=== PATIENT | male | born 1990 | race Caucasian/White ===

== ENCOUNTER 2017-01-02 13:29 | Observation (INO) | payer SELFPAY ==
[2017-01-02] MEDS ORDERED: NS 0.9% 1000 ML* 3,000 ML IV ONE (14:37)
[2017-01-02 15:06] LABS: Hematocrit 49 % (42-52); Hemoglobin 16.3 g/dl (14.0-18.0); Mean Corpuscular HGB Conc 33 g/dl (31-36); Mean Corpuscular Hemoglobin 30 pg (27-31); Mean Corpuscular Volume 89 fL (80-94); Mean Platelet Volume 8 um3 (7.4-10.4); Red Blood Count 5.49 10^6/ul (4.0-5.4); Red Cell Distribution Width 13 % (10.5-15); White Blood Count 12.8 10^3/ul (3.5-10.8)
[2017-01-02 15:22] LABS: ALT 13 U/L (7-52); AST 26 U/L (13-39); Albumin 4.8 g/dL (3.2-5.2); Alkaline Phosphatase 73 U/L (34-104); Anion Gap 7 mmol/L (2-11); BUN/Creatinine Ratio 11.3 (8-20); Blood Urea Nitrogen 11 mg/dL (6-24); CO2 Carbon Dioxide 26 mmol/L (22-32); Calcium 10.2 mg/dL (8.6-10.3); Chloride 100 mmol/L (101-111); Creatine Kinase 473 U/L (10-223); EGFR African American 122.3 (>60); EGFR Non-African American 95.1 (>60); Globulin 3.1 g/dL (2-4); Glucose 134 mg/dL (70-100); Potassium 3.5 mmol/L (3.5-5.0); Sodium 133 mmol/L (133-145); Total Protein 7.9 g/dL (6.4-8.9)
[2017-01-02 16:01] LABS: TSH (Thyroid Stimulating Horm) 0.43 mcIU/mL (0.34-5.60)
[2017-01-02 16:03] LABS: Acetaminophen < 15 mcg/mL; Alcohol < 10 mg/dL (<10); Salicylate < 2.50 mg/dL (<30)
[2017-01-02] MEDS ORDERED: Al Hydrox/Mg Hydrox/Simet LIQ* 30 ML UDC PO PRN (16:18)
[2017-01-02] MEDS ORDERED: Ondansetron INJ* 2 MG/ML VIAL IV PRN (16:18)
[2017-01-02] MEDS: NS 0.9% 1000 ML* 1,000 ML IV SCH (19:38)
[2017-01-03] MEDS: NS 0.9% 1000 ML* 1,000 ML IV SCH ×2 (05:11→15:29)
[2017-01-03 05:15] LABS: Hematocrit 43 % (42-52); Hemoglobin 14.2 g/dl (14.0-18.0); Mean Corpuscular HGB Conc 33 g/dl (31-36); Mean Corpuscular Hemoglobin 30 pg (27-31); Mean Corpuscular Volume 91 fL (80-94); Mean Platelet Volume 8 um3 (7.4-10.4); Red Blood Count 4.68 10^6/ul (4.0-5.4); Red Cell Distribution Width 13 % (10.5-15); White Blood Count 8.9 10^3/ul (3.5-10.8)
[2017-01-03 05:30] LABS: Albumin 3.7 g/dL (3.2-5.2); BUN/Creatinine Ratio 9.7 (8-20); Calcium 8.7 mg/dL (8.6-10.3); EGFR African American 128.4 (>60); EGFR Non-African American 99.8 (>60); Globulin 2.4 g/dL (2-4); Potassium 4.1 mmol/L (3.5-5.0); Total Bilirubin 1.6 mg/dL (0.2-1.0); Total Protein 6.1 g/dL (6.4-8.9)
[2017-01-03 05:53] LABS: Urine Bilirubin Negative (Negative); Urine Glucose Negative (Negative); Urine Nitrite Negative (Negative)
[2017-01-03 06:13] LABS: Benzodiazepine Urine Screen None Detected (None Detect)
--- NOTE | 2017-01-03 09:58 | PN ---
Subjective Date of Service: 01/03/17 Interval History: . no complaints at this time still worried he might hurt himself if left alone. reviewed labs; all wnl at this point EKG without QTc prolongation. CLEARED FROM A MEDICAL PERSPECTIVE -- NOW APPROPRIATE FOR PSYCHIATRIC EVALUATION. . Family History: Unchanged from Admission Social History: Unchanged from Admission Past Medical History: Unchanged from Admission Objective Active Medications: . Al Hydrox/Mg Hydrox/Simethicone (Maalox Plus*) 30 ml PO Q6H PRN PRN Reason: INDIGESTION Sodium Chloride (Ns 0.9% 1000 Ml*) 1,000 mls @ 100 mls/hr IV PER RATE MINNA Last Admin: 01/03/17 05:11 Dose: 100 mls/hr Ondansetron HCl (Zofran Inj*) 4 mg IV Q4H PRN PRN Reason: NAUSEA/VOMITING . Vital Signs 01/02/17 01/02/17 01/02/17 16:00 16:30 17:00 Temperature Pulse Rate 100 100 92 Respiratory 26 28 21 Rate Blood Pressure 147/83 134/72 136/72 (mmHg) O2 Sat by Pulse 96 96 96 Oximetry 01/02/17 01/02/17 01/02/17 17:30 17:45 18:14 Temperature 97.6 F 99.3 F Pulse Rate 92 96 86 Respiratory 22 18 18 Rate Blood Pressure 128/84 136/72 133/84 (mmHg) O2 Sat by Pulse 97 97 99 Oximetry 01/02/17 01/03/17 23:36 05:06 Temperature 98.2 F 97.7 F Pulse Rate 61 96 Respiratory 20 20 Rate Blood Pressure 137/73 141/59 (mmHg) O2 Sat by Pulse 99 100 Oximetry Oxygen Devices in Use Now: None Appearance: no distress; depressed Ears/Nose/Mouth/Throat: NL Teeth, Lips, Gums, Clear Oropharnyx Neck: NL Appearance and Movements; NL JVP, - - superficial neck lacerations Respiratory: Symmetrical Chest Expansion and Respiratory Effort Cardiovascular: NL Sounds; No Murmurs; No JVD Abdominal: NL Sounds; No Tenderness; No Distention Lymphatic: No Cervical Adenopathy Extremities: - - L wrist lacerations - superficial Skin: No Rash or Ulcers Neurological: Alert and Oriented x 3 Lines/Tubes/Other Access: Clean, Dry and Intact Peripheral IV Nutrition: Taking PO's Result Diagrams: 01/03/17 05:00 01/03/17 05:00 Assess/Plan/Problems-Billing . Assessment: 26 yo man with superficial neck and wrist lacerations as well as pill ingestion as part of suicide attempt. MAJOR DEPRESSIVE DISORDER. - Patient Problems (1) Major depression Current Visit: Yes Status: Acute Code(s): F32.9 - MAJOR DEPRESSIVE DISORDER , SINGLE EPISODE, UNSPECIFIED Comment: psychiatry consult today. (2) Suicidal overdose Current Visit: Yes Status: Acute Priority: High Code(s): T50.902A - POISONING BY UNSP DRUG/MEDS/BIOL SUBST, SELF-HARM, INIT Comment: 1:1 monitoring QTc OK -- 24+ hours after ingestion; cleared medically for psychiatric care as deemed appropriate.
--- NOTE | 2017-01-03 15:02 | HP ---
HISTORY AND PHYSICAL: DATE OF ADMISSION: 01/02/17 TIME OF MY EVALUATION: 5 p.m. PRIMARY CARE PROVIDER: None. CHIEF COMPLAINT: Suicidal attempt by pill ingestion and wrist laceration and neck laceration. HISTORY OF PRESENT ILLNESS: Mr. Byrd is a 26-year-old gentleman who has no significant medical history, but has been suffering from worsening depression over the past month and has had depression for about a year. The night prior to presentation, the patient took a bottle of pills. He is very vague about the quantity or the identity. He stated they were his mother's pills and she did have bupropion and so he thinks that might have been the substance ( Wellbutrin). The patient also superficially cut his left wrist and throat. He is hemodynamically stable in the emergency room. Because of the recommendation by Poison Control, the hospital service was contacted for observation to observe his QTc, hemodynamic stability, and electrolytes. The patient denies any recent physical ailments. There were no fevers, chills, nausea, vomiting, diarrhea, ill contacts, or any other medical problems that he can remember. He is accompanied by his fiancee. The patient did not go into great detail about his depression with me. He is being followed by the mental health / psychiatry service separately. PAST MEDICAL HISTORY: Depression as above. OUTPATIENT MEDICATIONS: No prescription medications. ALLERGIES: PENICILLIN. FAMILY HISTORY: The family history was reviewed. No history of suicidality by first-degree relatives as per the patient. 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 He is single, but engaged. He does use illicit drugs. He was evasive about this, but his toxicology screen was positive for both cocaine and cannabinoids and he confirmed this was accurate. REVIEW OF SYSTEMS: A review of 14 systems was accomplished at the bedside. This was largely negative except for the pertinent positives mentioned above in the HPI and past medical history. Specifically no identifiable medical problems. PHYSICAL EXAMINATION GENERAL APPEARANCE: A young-appearing man appears stated age, in no apparent distress at this time. Awake, alert, and oriented x3, and answering questions appropriately. He is in a [facility] gown. VITAL SIGNS: On admission, temperature 97.6 degrees Fahrenheit, previously it was as high as 99.3, this was untreated; pulse rate initially 130s, sinus tachycardia, drifted down into the 90s with rehydration; respirations 20 and unlabored; oxygen saturation 99% on room air; and blood pressure 139/87. HEENT: Oropharynx is clear. Mucous membranes are moist. NECK: Significant for superficial lacerations that are clean at this time. CHEST: Clear breath sounds anteriorly and posteriorly. No increased work of breathing. No accessory muscle use. HEART: Regular rate and rhythm. No murmurs, rubs, or gallops appreciated. ABDOMEN: Soft and nontender. Skin is dry and intact. EXTREMITIES: Superficial lacerations on his left wrist, also clean and dry at this time; these are new. LYMPH: No adenopathy. NEUROLOGIC: No focal sensorimotor, proprioception, or reflex component deficiencies. PSYCH: Flat affect, obviously depressed, cheerful at times. ADMISSION DATA: His admission chemistry was generally unremarkable except for elevated glucose of 134 - unknown dietary status surrounding that value. Total bilirubin 1.7 and total CK was 473. Chloride was marginally lower at 100. His CBC was remarkable for a mildly elevated white blood cell count of 12.8, hemoglobin 16.3, and platelets 202. Urinalysis unremarkable. Toxicology positive for cocaine and marijuana. EKG initially was sinus bradycardia, no evidence of ST or T-wave abnormalities, and QTc was not prolonged. IMPRESSION: Mr. Byrd is a 26-year-old gentleman with an unknown ingestion as part of a suicide attempt with concurrent self-inflicted lacerations. The patient is certainly appropriate for psychiatric referral and strong consideration for inpatient treatment, but in the interim needs medical clearance with observation and EKG/QTc, hemodynamic and electrolyte monitoring. The patient will be placed on the medical service on observation status under telemetry monitoring and will have labs rechecked in the morning and I will run fluids overnight. The patient will be kept on one- to-one suicide monitoring. His fiancee will be allowed to stay as a matter of support to the patient and he seems to appreciate that. Further clinical decision will be made based on his progress overnight. DVT prophylaxis will be accomplished by ambulation. The patient is low risk for VTE events / complications. Surrogate decision maker is the patient's mother, Yaquelin Edwards, who could be reached at . The patient is a full code. TIME SPENT: Total time time to admit Mr. Byrd was 65 minutes. Greater than half that time was spent going over the history and physical and explaining the hospital plan of care and that I would contact the psychiatry attending tomorrow pending medical clearance. CONDITION: At this point, stable. [id number]/CPS #: [id number] PAM
[2017-01-03 17:25] VITALS: BP 132/87
[2017-01-03] MEDS ORDERED: Acetaminophen TAB* 325 MG PO PRN (18:05)
[2017-01-04] MEDS ORDERED: Vitamin THERAPEUTIC TAB PO SCH (09:00)
--- NOTE | 2017-01-04 16:09 | PN ---
Hospitalist Progress Note . HOSPITALIST DISCHARGE NOTE: Psych service is admitting Mr. Byrd. I signed a second attending attestation in support of this decision. See dc summary.
--- NOTE | 2017-01-04 23:55 | ED ---
Manuel Colbert Erika, scribed for Bakari Correia MD on 01/02/17 at 1545 . Psychiatric Complaint - HPI Summary HPI Summary: Patient is a 26-year-old male presenting to the ED with a CC of overdose. Patient reports that he took 15 pills of his mother's Buspar and 5 pills of his mother's Wellbutrin. He also has used cocaine, marijuana, and alcohol. He also reports that he self-harmed a few days ago - he notes lacerations and grace to his left forearm, as well as lacerations to his neck. Patient has prior suicide attempts. Patient has not been diagnosed with depression. - History Of Current Complaint Chief Complaint: EDMentalHealth Time Seen by Provider: 01/02/17 14:42 Hx Obtained From: Patient, Family/School Bus Driver/Teacher Assistant - Mother Onset/Duration: Sudden Onset, Lasting Hours, Still Present Timing: Constant Severity Initially: Moderate Severity Currently: Moderate Character: Depressed Alleviating Factor(s): Nothing Related History: Positive For: Prior Psychiatric Issues Has Suicidal: Reports: Thoughts, With A Plan, Demonstrates Gesture, Has Prior Attempt(s) - Allergies/Home Medications Allergies/Adverse Reactions: Allergies Allergy/AdvReac Type Severity Reaction Status Date / Time Penicillins Allergy Hives Verified 01/02/17 13:46 PMH/Surg Hx/FS Hx/Imm Hx Endocrine/Hematology History: Denies: Hx Diabetes Psychiatric History: Reports: Hx Depression - undiagnosed, Hx Suicide Attempt Infectious Disease History: Yes Infectious Disease History: Denies: Traveled Outside the [place] in Last 30 Days - Family History Known Family History: Positive: Other - anxiety, depression - Social History Lives: With Family Hx Substance Use: Yes Substance Use Type: Reports: Cocaine, Marijuana Review of Systems Skin: Other - grace and lacerations - see HPI Positive: Depressed All Other Systems Reviewed And Are Negative: Yes Physical Exam Triage Information Reviewed: Yes Vital Signs On Initial Exam: Initial Vitals Temp Pulse Resp BP Pulse Ox 99.3 F 131 20 139/87 99 01/02/17 13:34 01/02/17 13:34 01/02/17 13:34 01/02/17 13:34 01/02/17 13:34 Vital Signs Reviewed: Yes Appearance: Positive: Well-Appearing, No Pain Distress Skin: Positive: Warm, Skin Color Reflects Adequate Perfusion, Dry, Other - Healing cigarette-type grace to the left forearm. Some superficial lacerations on the left forearm. Superficial laceration to the left side of the throat Head/Face: Positive: Normal Head/Face Inspection Eyes: Positive: Other: - Pupils are 4-5 mm and reactive ENT: Positive: Normal ENT inspection Neck: Positive: Supple, Nontender Respiratory/Lung Sounds: Positive: Clear to Auscultation, Breath Sounds Present Cardiovascular: Positive: Tachycardia - at 131 bpm on triage Abdomen Description: Positive: Nontender, Soft Bowel Sounds: Positive: Present Musculoskeletal: Positive: Normal Neurological: Positive: Normal Psychiatric: Positive: Affect/Mood Appropriate Diagnostics - Vital Signs Vital Signs Temp Pulse Resp BP Pulse Ox 01/02/17 13:34 99.3 F 131 20 139/87 99 - Laboratory Lab Results: Lab Results 01/02/17 01/02/17 01/02/17 Range/Units 14:50 14:50 14:50 WBC 12.8 H (3.5-10.8) 10^3/ul RBC 5.49 H (4.0-5.4) 10^6/ul Hgb 16.3 (14.0-18.0) g/dl Hct 49 (42-52) % MCV 89 (80-94) fL MCH 30 (27-31) pg MCHC 33 (31-36) g/dl RDW 13 (10.5-15) % Plt Count 202 (150-450) 10^3/ul MPV 8 (7.4-10.4) um3 Neut % (Auto) 77.0 (38-83) % Lymph % (Auto) 13.5 L (25-47) % [place]oun % (Auto) 9.1 H (1-9) % Eos % (Auto) 0 (0-6) % Baso % (Auto) 0.4 (0-2) % Absolute Neuts (auto) 9.8 H (1.5-7.7) 10^3/ul Absolute Lymphs (auto) 1.7 (1.0-4.8) 10^3/ul Absolute Monos (auto) 1.2 H (0-0.8) 10^3/ul Absolute Eos (auto) 0 (0-0.6) 10^3/ul Absolute Basos (auto) 0.1 (0-0.2) 10^3/ul Absolute Nucleated RBC 0.01 10^3/ul Nucleated RBC % 0 Sodium 133 (133-145) mmol/L Potassium 3.5 (3.5-5.0) mmol/L Chloride 100 L (101-111) mmol/L Carbon Dioxide 26 (22-32) mmol/L Anion Gap 7 (2-11) mmol/L BUN 11 (6-24) mg/dL Creatinine 0.97 (0.67-1.17) mg/dL Est GFR ( Amer) 122.3 (>60) Est GFR (Non-Af Amer) 95.1 (>60) BUN/Creatinine Ratio 11.3 (8-20) Glucose 134 H (70-100) mg/dL Calcium 10.2 (8.6-10.3) mg/dL Total Bilirubin 1.70 H (0.2-1.0) mg/dL AST 26 (13-39) U/L ALT 13 (7-52) U/L Alkaline Phosphatase 73 (34-104) U/L Total Creatine Kinase 473 H (10-223) U/L Total Protein 7.9 (6.4-8.9) g/dL Albumin 4.8 (3.2-5.2) g/dL Globulin 3.1 (2-4) g/dL Albumin/Globulin Ratio 1.5 (1-3) TSH 0.43 (0.34-5.60) mcIU/mL Salicylates < 2.50 (<30) mg/dL Acetaminophen < 15 mcg/mL Serum Alcohol < 10 (<10) mg/dL HIV 1&2 Antibody Nonreactive (Nonreactive) Result Diagrams: 01/03/17 05:00 01/03/17 05:00 Lab Statement: Any lab studies that have been ordered have been reviewed, and results considered in the medical decision making process. - EKG 13:50 Cardiac Rate: Tachycardia - at 116 bpm EKG Rhythm: Sinus Tachycardia ST Segment: Non-Specific EKG Interpretation: No prolonged QT Course/Dx - Differential Dx/Clinical Impression Provider Diagnosis: Overdose - Physician Notifications Discussed Care Of Patient With: Dr. Henderson (hospitalist) at 15:56 - agrees to admit as per poison control Discharge - Discharge Plan Condition: Stable Disposition: ADMITTED TO [facility] documentation as recorded by the Manuel osman Erika accurately reflects the service I personally performed and the decisions made by me, Bakari Correia MD.
--- NOTE | 2017-01-05 06:53 | DS ---
DISCHARGE SUMMARY: DATE OF ADMISSION: 01/02/17 DATE OF DISCHARGE: 01/03/17 STATUS DURING HOSPITALIZATION: Observation. PRINCIPAL DISCHARGE DIAGNOSIS: Suicidal attempt by toxic ingestion (presumably Wellbutrin) as well as self-inflicted lacerations. DISCHARGE MEDICATIONS: None. HISTORY OF PRESENT ILLNESS AND HOSPITAL COURSE: Please see my H and P on . In brief, Mr. Byrd is an unfortunate 26-year-old gentleman, who has been having worsening depression, now acute major depression with a suicide attempt by pill ingestion as well as superficial lacerations to his left wrist and neck and referral for medical observation by Poison Control. I made the patient observation status on the evening of 01/02/17 to observe him on telemetry monitoring and to recheck a QTc the next morning, both of which were unremarkable. The patient was deemed stable for transfer to the psychiatry service and they did follow up and evaluate him and deem him suitable for inpatient behavioral health services. Now, the patient is being discharged to their care. Please see the separate psychiatric consultation from 01/03/17. There were no medical recommendations on transfer. Of course, the medical service will remain available to assist in this patient's care if the need arises. TIME SPENT: Total time taken to evaluate and transfer Mr. Byrd on 01/03/17 was 45 minutes, please see the separate daily progress note, which was done earlier in the day that speaks to the medical stability of the patient and readiness for transfer. MEDICAL CONDITION AT TRANSFER: Stable. [id number]/[facility] #: [id number]
== END 2017-01-03 18:19 ==
LOC: ED 13:29 → MEDTELE 15:54
PROVIDERS: ADMIT Hospitalist; ATTEND Internal Medicine
DX: T43.292A Poisoning by other antidepressants, intentional self-harm, initial encounter (principal); Y92.9 Unspecified place or not applicable; S11.81XA Laceration without foreign body of other specified part of neck, initial encounter; S61.512A Laceration without foreign body of left wrist, initial encounter; X78.9XXA Intentional self-harm by unspecified sharp object, initial encounter; F32.9 Major depressive disorder, single episode, unspecified; I51.7 Cardiomegaly; R00.0 Tachycardia, unspecified; F17.210 Nicotine dependence, cigarettes, uncomplicated
CPT/HCPCS: 36415; 80053; 80307; 80320; 80329; 81003; 82550; 84443; 85025; 86703; 93005; 96360; 96361; 99285; 99406; G0378; G0480

== ENCOUNTER 2017-01-03 18:05 | Inpatient (IN) | payer SELFPAY ==
[2017-01-04] MEDS ORDERED: Mouth Piece, Nicotine* 1 EACH CARTRIDGE INH SCH (09:52)
[2017-01-04] MEDS ORDERED: Al Hydrox/Mg Hydrox/Simet LIQ* 30 ML UDC PO PRN (09:52)
[2017-01-04] MEDS ORDERED: Nicotine GUM* 2 MG PO PRN (09:52)
[2017-01-04] MEDS ORDERED: Nicotine Inhaler* 10 MG AMP INH PRN (09:52)
[2017-01-04] MEDS ORDERED: Acetaminophen TAB* 325 MG PO PRN (09:52)
--- NOTE | 2017-01-04 19:43 | PN ---
Progress Note - Progress Note Note: Patient told there are two patients on the unit (did not disclose their names) who have tested positive for Influenza A and I am recommending taking Tamiflu as a prophylactic measure. I made it clear this was optional. He agreed to the treatment after hearing of the indications, risks, benefits and alternatives.
[2017-01-04] MEDS: Nicotine Patch Removal NOTE PATCH OFF SCH (20:11)
[2017-01-04] MEDS ORDERED: Mouth Piece, Nicotine* 1 EACH CARTRIDGE ONE (20:12)
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
[2017-01-05] MEDS: Oseltamivir CAP* 75 MG PO SCH (09:13)
[2017-01-05] MEDS: Vitamin THERAPEUTIC TAB PO SCH (09:13)
[2017-01-05] MEDS: Nicotine PATCH 14 MG/24 HR* PATCH TRANSDERM SCH ×2 (09:14)
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
[2017-01-05] MEDS: Citalopram TAB* 20 MG PO SCH (17:37)
[2017-01-05] MEDS: Nicotine Patch Removal NOTE PATCH OFF SCH (23:13)
[2017-01-06 07:49] VITALS: BP 135/71
[2017-01-06] MEDS: Nicotine PATCH 14 MG/24 HR* PATCH TRANSDERM SCH (08:18)
[2017-01-06] MEDS: Citalopram TAB* 20 MG PO SCH (08:18)
[2017-01-06] MEDS: Vitamin THERAPEUTIC TAB PO SCH (08:18)
[2017-01-06] MEDS: Oseltamivir CAP* 75 MG PO SCH (08:18)
--- NOTE | 2017-01-06 11:09 | PN ---
MHU: Group Therapy Note - Service Type Service Type: 72245 Group Psychotherapy - Cognitive Behavioral Group Therapy ( CBT):Patient was attentive and participatory in CBT programming this morning, and remained in good behavioral control. Patient expressed positive insights regarding relevant treatment interventions and goals.
--- NOTE | 2017-01-06 21:35 | CONS ---
PSYCHOLOGICAL CONSULT REPORT: DATE OF CONSULTATION: 01/05/17 REASON FOR REFERRAL: Asael was referred for personality testings secondary to concerns regarding possible bipolar condition. The patient describes periodic disruption in sleep cycle. TEST ADMINISTERED: Asael completed the [place] Multiphasic Personality Inventory-2 (MMPI-2). He was given feedback in individual conversation and has been seen in the context of cognitive behavioral psychotherapy by this mortgage loan underwriter as well. BEHAVIORAL OBSERVATIONS: Asael is a 26-year-old male who presented in the emergency department after taking an overdose of his mother's psychotropic medications. After short stabilization, he was down to psychiatric merrill for further evaluation secondary to safety concerns. Asael has been cooperative with all efforts, treat, and assess, and has endorsed a family history of bipolar disorders, expressing concerns that he maybe beginning to show signs and symptoms thereof as well. However, his recent difficulties appeared to have exacerbated by increasing use of recreational drugs including recent use of cocaine. He describes having using marijuana on a daily basis since early adolescence, and then stopping regular marijuana use and instead using cocaine. He describes reacting to difficulties with insomnia with simply experimenting with cocaine as a means to "feel better." This of course exacerbated his insomniac difficulties and appears to have led to increased emotional agitation precipitating his overdose attempt. 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 He describes at times closing past midnight and then going home to have his meal, which at times would lead to periods of either poor sleep hygiene or louis insomnia. Asael, however, does not endorse any difficulties consistent with delusional thoughts or beliefs or any sort of thought disorder issues. He does not present with any characteristic speech patterns or bipolar manic episode and displays good insight and judgment currently. He has been quiet patient while on a very busy inpatient unit and trying to given himself and staff time to properly formulate a diagnosis to rule out possibility of bipolar condition and possible utilization of medications. TEST RESULTS: Asael provides highly distressed profile on validity scale indicators, having obtained FB scale score of something greater than 120. This is quite literally off charts in terms of an extreme endorsement pattern of cynical and pessimistic thoughts and feelings about life in this prospects. Concomitantly, he has extremely low scores occurring on emotional coping and self-esteem indices obtaining scores lower than 35 on both. This is a classic floor and ceiling effect characteristic of "cry for help" response. However, Asael does not endorse depression in an overly dramatic fashion, having only obtained a minor elevation on the depression scale (T = 67). He has elevated all 3 psychoticism scales between the T score of 85 and 95 including the hypomania scale (T = 75). He also scores in a similar fashion in the social conversion scale. Discussion, which Asael addressed impulsivity as a primary concern as he does not present as though he is in the manic condition nor does he endorse characteristic symptoms. In the context of his over endorsement of stress, these elevated scales appeared to represent his interpretation in a personal duress including his what is likely to be rather intense periods of insomnia. Asael's difficulties off course also occur in the context of recreational drug use including cocaine, which certainly complicates his diagnostic picture. But given his presentation while on the unit, this would seems to contradict such concerns. DIAGNOSTIC IMPRESSIONS: Support polysubstance use disorder (marijuana, alcohol , and less frequently cocaine). Treatment should continue to rule out possible bipolar disorder as Asael endorses positive family history thereof. Asael impresses as good candidate to benefit from continued outpatient psychotherapies as he has not had mental health contact before and is open and appreciative of services. [id number]/[facility] #: [id number] PAM
--- NOTE | 2017-01-07 01:21 | DS ---
DISCHARGE SUMMARY: DATE OF ADMISSION: 01/03/17 DATE OF DISCHARGE: 01/06/17 DISCHARGE DIAGNOSES: [place] I: Unspecified depressive disorder; rule out major depressive disorder versus bipolar disorder type 2; cocaine use disorder; cannabis use disorder. [place] II: Cluster B personality traits. [place] III: Noncontributory. [place] IV: Severe primary support stressors. [place] V: At the time of admission was 40 and at the time of discharge is 60. CONDITION AT THE TIME OF DISCHARGE: Stable. The patient is calm, cooperative. He has experienced a complete resolution of his suicidal ideations. He is future oriented indicating that he wants to return to work and living in his apartment with his fiancee and he is eager to get back into school to finish his undergraduate degree. He is denying the urge to harm himself or to use substances of abuse and he is very much eager to embark on outpatient substance abuse and mental health treatment in the community. We just had a family meeting attended by himself and his fiancee who has been with him for the past 3 -1/2 years. Both the patient and his loved one are in agreement with the discharge plan. The patient is on a voluntary status and he is requesting discharge. I do not see any legal justification for keeping him any further, feeling that he can be successfully treated in a less restricted setting. MENTAL STATUS EXAMINATION: The patient is a young nice looking white male, who is wearing a flannel shirt. He is clean and well groomed with curly brown hair. Currently, he is holding hands with his fiancee and they are clearly interacting appropriately and lovingly. Speech has a normal rate, tone and volume. Mood is euthymic with a full affect. Thought process is linear and goal directed. Thought content is significant for his desire to leave the hospital in order to return to work. The patient is denying suicidal or homicidal ideations. He is denying auditory or visual hallucinations. Insight and judgment is good given his willingness to follow up with outpatient treatment of both his mental illness and substance abuse issues. Cognitively, he is awake and alert with what appeared to be an average intellect. DISCHARGE INSTRUCTIONS: To the patient are as follows: A. Medications: The patient is taking citalopram 20 mg p.o. daily. B. Diet: Regular. C. Activity: As tolerated. The patient is strongly encouraged to abstain from tobacco products; however, he is declining the offer of continued nicotine replacement therapies indicating his preference to continue smoking for the time being. D. Followup care: The patient will follow up with the [facility] where his intake will be within one week of discharge. In addition to this, he is agreeable with followup at the [facility] , which is also on the grounds of [facility]. HOSPITAL COURSE: As follows: PART A: Reason for admission: The patient is a 26-year-old engaged, domiciled , employed white male with no formal psychiatric history who was transferred to our unit from the ICU following medical clearance after an overdose intentionally of 15 to 20 unknown anxiety and antidepressant pills, which had belonged to his mother. The patient was medically cleared and taken to our unit for admission where he related that the prior he had argued with his fiaidae. Apparently, he became upset, agitated and impulsively swallowed between 15 and 20 pills of BuSpar and an unspecified antidepressant, which were leftover medications belonging to his mother. His girlfriend saw him swallowing the pills and helped him throw up afterwards at which time she called 911. He ordered her not to and he promised to go to the hospital on Thursday morning. The fiancee apparently had to go to work in the morning and his mother volunteered to drive him into the hospital. He was briefly medically admitted, but then transferred to our care. At this time, he was reporting longstanding issues with depressed mood beginning at the age of 14. He states that he is having feelings of sadness, numbness, thoughts of suicide. He had made a number of suicidal gestures over the past 6 months including trying to hang himself, burning himself and exposing himself to the elements as well as cutting. During these periods he has little appetite, sleeps very poorly. He feels tired during the day. He was also endorsing feelings of guilt , hopelessness, helplessness and worthlessness and describing that for the past 3 to 4 weeks he has been easily frustrated and irritable. He has gone about 50 hours without sleep at various times and states that he did not feel tired. He said he often feels paranoid and argues and connects things that are not related. The patient admits to a significant history of substance abuse, which started when he was 14. He averages smoking between 1 to 2 grams of marijuana daily until 1 to 2 months ago when he stopped using marijuana and started using cocaine almost daily. He also drinks between 6 and 12 beers per day. The patient denies any legal or medical consequences of substance abuse and states that he has abused LSD and mushrooms in the past. Stressors include periodically strained relations with his girlfriend as well as financial strains because he has been using his pay check to buy drugs. PART B: Psychiatric treatment rendered: The patient was admitted to the Adult Behavioral Health Unit, where he was placed on q.30-minute checks for his own safety. He did endorse multiple symptoms of depression on the MMPI and also tended to score highly on hypomanic symptoms, but this was confounded by his intense use of cocaine recently and therefore, we felt that the safest and likely most accurate diagnosis would have been one of major depressive disorder. For this reason, he was started on a low dose of citalopram initially 10 mg and then 20 mg p.o. daily, which he appears to be tolerating well. For the most part, he seems to have mostly benefitted from the milieu setting where he has had satisfactory interactions with both staff and peers, particularly in the group therapy setting. He indicates this is the most he has ever talked about himself and he feels relief from letting out his issues and allowing other people to console and advise him. I did have a family meeting attended by his fiancee and she indicates that for years she has been trying to get him into formal treatment in the outpatient setting, but that he has always been reluctant because of issues of stigma. At this point; however, the patient states that he feels very good about his interactions with mental health providers here and would be very much willing to continue these. He also was asked about his substance abuse, which he is stating is in an effort to self-medicate his depression. He does accept referral to the [facility]; however. I should also note that he showed no signs of acute drug or substance withdrawal throughout his hospitalization here. Similarly, he showed no signs of violence towards himself or others. He was always calm, cooperative and readily did everything asked of him in the milieu setting. At this point, he is requesting discharge and we feel that he is safe to be treated in a less restricted setting. His girlfriend is very much in agreement with this plan. [id number]/[facility] #: [id number] PAM
== END 2017-01-06 16:20 | disposition home or self-care (01) | DRG 881 ==
LOC: BSU 18:05
PROVIDERS: ADMIT Psychiatry & Neurology Psychiatry; ATTEND Psychiatry & Neurology Psychiatry
DX: F32.9 Major depressive disorder, single episode, unspecified (principal); R45.851 Suicidal ideations; F12.10 Cannabis abuse, uncomplicated; F10.10 Alcohol abuse, uncomplicated; F14.10 Cocaine abuse, uncomplicated
CPT/HCPCS: 90853; 96102; 99222; 99231; 99238; A9270-GY

== ENCOUNTER 2017-04-06 10:57 | Emergency (ER) | payer SELFPAY ==
[2017-04-06 11:38] LABS: Hematocrit 48 % (42-52); Hemoglobin 16.1 g/dl (14.0-18.0); Mean Corpuscular HGB Conc 34 g/dl (31-36); Mean Corpuscular Hemoglobin 31 pg (27-31); Mean Corpuscular Volume 91 fL (80-94); Mean Platelet Volume 9 um3 (7.4-10.4); Red Blood Count 5.27 10^6/ul (4.0-5.4); Red Cell Distribution Width 13 % (10.5-15); White Blood Count 10.2 10^3/ul (3.5-10.8)
[2017-04-06 11:54] LABS: ALT 10 U/L (7-52); AST 16 U/L (13-39); Albumin 4.8 g/dL (3.2-5.2); Alkaline Phosphatase 90 U/L (34-104); Anion Gap 10 mmol/L (2-11); BUN/Creatinine Ratio 7.9 (8-20); Blood Urea Nitrogen 7 mg/dL (6-24); CO2 Carbon Dioxide 23 mmol/L (22-32); Calcium 9.6 mg/dL (8.6-10.3); Chloride 107 mmol/L (101-111); EGFR African American 135.1 (>60); Globulin 3.3 g/dL (2-4); Glucose 101 mg/dL (70-100); Potassium 3.8 mmol/L (3.5-5.0); Sodium 140 mmol/L (133-145); Total Protein 8.1 g/dL (6.4-8.9)
[2017-04-06 12:31] LABS: Acetaminophen < 15 mcg/mL; Alcohol 137 mg/dL (<10); Salicylate < 2.50 mg/dL (<30)
[2017-04-06 12:40] LABS: TSH (Thyroid Stimulating Horm) 0.68 mcIU/mL (0.34-5.60)
[2017-04-06 13:41] VITALS: BP 112/45
[2017-04-06] MEDS ORDERED: Acetaminophen TAB* 325 MG PO PRN (14:47)
[2017-04-06] MEDS ORDERED: OLANzapine TAB*ODT* 10 MG TAB PO PRN (14:47)
[2017-04-06] MEDS ORDERED: Nicotine Inhaler* 10 MG AMP INH PRN ×2 (14:47→19:42)
[2017-04-06] MEDS ORDERED: Al Hydrox/Mg Hydrox/Simet LIQ* 30 ML UDC PO PRN (14:47)
[2017-04-06 15:05] LABS: Benzodiazepine Urine Screen None Detected (None Detect)
[2017-04-06 15:19] LABS: Urine Bacteria Absent (Absent); Urine Bilirubin Negative (Negative); Urine Glucose Negative (Negative); Urine Nitrite Negative (Negative)
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
[2017-04-06] MEDS ORDERED: Nicotine GUM* 2 MG PO PRN (19:42)
[2017-04-06] MEDS ORDERED: Mouth Piece, Nicotine* 1 EACH CARTRIDGE INH SCH (19:42)
[2017-04-06] MEDS ORDERED: OLANzapine TAB*ODT* 10 MG TAB PO SCH (21:00)
[2017-04-07] MEDS ORDERED: Vitamin THERAPEUTIC TAB PO SCH (09:00)
== END 2017-04-06 15:43 ==
LOC: ED 10:57
DX: T43.222A Poisoning by selective serotonin reuptake inhibitors, intentional self-harm, initial encounter (principal); Y92.9 Unspecified place or not applicable; F17.210 Nicotine dependence, cigarettes, uncomplicated; F32.9 Major depressive disorder, single episode, unspecified; Z88.0 Allergy status to penicillin
CPT/HCPCS: 36415; 80053; 80307; 80320; 80329; 81003; 81015; 84443; 85025; 87086; 93005; 99282; G0480

== ENCOUNTER 2017-04-06 17:52 | Inpatient (IN) | payer SELFPAY ==
[2017-04-06 18:37] LABS: Hematocrit 48 % (42-52); Hemoglobin 15.8 g/dl (14.0-18.0); Mean Corpuscular HGB Conc 33 g/dl (31-36); Mean Corpuscular Hemoglobin 30 pg (27-31); Mean Corpuscular Volume 91 fL (80-94); Mean Platelet Volume 9 um3 (7.4-10.4); Red Blood Count 5.27 10^6/ul (4.0-5.4); Red Cell Distribution Width 14 % (10.5-15); White Blood Count 13.7 10^3/ul (3.5-10.8)
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
[2017-04-06 18:51] LABS: ALT 11 U/L (7-52); AST 17 U/L (13-39); Albumin 4.7 g/dL (3.2-5.2); Alkaline Phosphatase 97 U/L (34-104); Anion Gap 11 mmol/L (2-11); BUN/Creatinine Ratio 12.1 (8-20); Blood Urea Nitrogen 11 mg/dL (6-24); CO2 Carbon Dioxide 21 mmol/L (22-32); Calcium 9.8 mg/dL (8.6-10.3); Chloride 105 mmol/L (101-111); EGFR African American 131.6 (>60); EGFR Non-African American 102.4 (>60); Globulin 3.4 g/dL (2-4); Glucose 85 mg/dL (70-100); Potassium 4.2 mmol/L (3.5-5.0); Sodium 137 mmol/L (133-145); Total Protein 8.1 g/dL (6.4-8.9)
[2017-04-06 18:54] LABS: Urine Bacteria Absent (Absent); Urine Bilirubin Negative (Negative); Urine Glucose Negative (Negative); Urine Nitrite Negative (Negative)
[2017-04-06 19:07] LABS: Benzodiazepine Urine Screen None Detected (None Detect)
[2017-04-06 19:07] LABS: Acetaminophen < 15 mcg/mL; Alcohol < 10 mg/dL (<10); Salicylate < 2.50 mg/dL (<30)
[2017-04-06 19:17] LABS: TSH (Thyroid Stimulating Horm) 0.46 mcIU/mL (0.34-5.60)
[2017-04-07] MEDS ORDERED: Al Hydrox/Mg Hydrox/Simet LIQ* 30 ML UDC PO PRN (00:43)
[2017-04-07] MEDS ORDERED: Mouth Piece, Nicotine* 1 EACH CARTRIDGE INH SCH (00:43)
[2017-04-07] MEDS ORDERED: Acetaminophen TAB* 325 MG PO PRN (00:43)
[2017-04-07] MEDS ORDERED: Nicotine GUM* 2 MG PO PRN (00:43)
[2017-04-07] MEDS ORDERED: Nicotine Inhaler* 10 MG AMP INH PRN (00:43)
[2017-04-07] MEDS ORDERED: OLANzapine TAB* 5 MG PO PRN (00:44)
[2017-04-07] MEDS: Vitamin THERAPEUTIC TAB PO SCH (09:39)
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
[2017-04-07] MEDS: OLANzapine TAB* 10 MG PO SCH (21:38)
[2017-04-08] MEDS: Citalopram TAB* 20 MG PO SCH (09:51)
[2017-04-08] MEDS: Vitamin THERAPEUTIC TAB PO SCH (09:51)
[2017-04-08] MEDS: Naltrexone (NF) 50 MG TAB PO SCH (09:51)
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
[2017-04-08] MEDS: OLANzapine TAB* 10 MG PO SCH (20:17)
[2017-04-09 08:17] VITALS: BP 145/84
[2017-04-09] MEDS: Vitamin THERAPEUTIC TAB PO SCH (08:22)
[2017-04-09] MEDS: Citalopram TAB* 20 MG PO SCH (08:22)
[2017-04-09] MEDS: Naltrexone (NF) 50 MG TAB PO SCH (08:22)
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
== END 2017-04-09 12:20 | disposition home or self-care (01) | DRG 881 ==
LOC: ED 17:52 → BSU 19:39
PROVIDERS: ADMIT Psychiatry & Neurology Psychiatry; ATTEND Psychiatry & Neurology Psychiatry
DX: F32.9 Major depressive disorder, single episode, unspecified (principal); F41.9 Anxiety disorder, unspecified; F12.90 Cannabis use, unspecified, uncomplicated; F14.90 Cocaine use, unspecified, uncomplicated; F43.10 Post-traumatic stress disorder, unspecified; F17.210 Nicotine dependence, cigarettes, uncomplicated; T43.222A Poisoning by selective serotonin reuptake inhibitors, intentional self-harm, initial encounter; Y92.9 Unspecified place or not applicable; Z91.5 Personal history of self-harm; Z88.0 Allergy status to penicillin; Z81.8 Family history of other mental and behavioral disorders; Z72.89 Other problems related to lifestyle
CPT/HCPCS: 36415; 80053; 80307; 80320; 80329; 81003; 84443; 85025; 99222; A9270-GY; G0480